=== PATIENT | male | born 1950 | race Caucasian/White ===

== ENCOUNTER 2022-05-12 22:12 | Inpatient (IN) | payer MEDICARE ==
[~2022-05-12] VITALS: Ht 182.9 cm; Wt 85.4 kg
[2022-05-12] MEDS ORDERED: Prinivil10 MG PO (22:46)
[2022-05-12 22:49] LABS: BASOPHILS ABSOLUTE AUTO 0.04 K/mm3 (0.00-0.23); BASOPHILS PERCENT AUTO 1 % (0-2); EOSINOPHILS ABSOLUTE AUTO 0.21 K/mm3 (0.00-0.68); EOSINOPHILS PERCENT AUTO 3 % (0-6); Hemoglobin 13.4 g/dL (13.5-17.5); IMMATURE GRAN ABSOLUTE AUTO 0.02 K/mm3 (0.00-0.10); IMMATURE GRAN PERCENT AUTO 0 % (0-1); LYMPHOCYTES ABSOLUTE AUTO 2.71 K/mm3 (0.84-5.20); LYMPHOCYTES PERCENT AUTO 34 % (21-46); MONOCYTES ABSOLUTE AUTO 0.68 K/mm3 (0.16-1.47); MONOCYTES PERCENT AUTO 9 % (4-13); Mean Corpuscular HGB 32.1 pg (26.0-34.0); Mean Corpuscular HGB Conc 35.3 g/dL (31.5-36.5); Mean Corpuscular Volume 91 fL (80-100); Mean Platelet Volume 10.1 fL (9.1-12.4); NEUTROPHILS ABSOLUTE AUTO 4.21 K/mm3 (1.96-9.15); NEUTROPHILS PERCENT AUTO 54 % (41-73); Platelet Count 217 K/mm3 (150-400); RDW Coefficient Variation 12.4 % (11.7-14.2); RDW Standard Deviation 41.3 fL (35.1-46.3); Red Blood Cell Count 4.17 M/mm3 (4.30-5.90); White Blood Cell Count 7.87 K/mm3 (4.00-11.30)
[2022-05-12 23:01] LABS: Albumin, Blood 3.4 g/dL (3.4-5.0); Albumin/Globulin Ratio 1.2 (0.8-1.8); Bilirubin, Total 0.3 mg/dL (0.1-1.0); Bun/Creatinine Ratio 11.5 (12.0-20.0); Calcium, Blood 8.7 mg/dL (8.5-10.1); Creatinine, Blood 1.04 mg/dL (0.60-1.20); Globulin, Blood 2.9 g/dL (2.2-4.0); Potassium, Blood 3.3 mmol/L (3.5-5.5); Total Protein, Blood 6.3 g/dL (6.4-8.2)
[2022-05-13 04:04] LABS: Anti-Xa UFH, PHA Monitoring <0.10 IU/mL; International Normalized Ratio 1.07; Prothrombin Time Results 11.2 Sec (9.7-11.5)
[2022-05-13 05:25] LABS: Alanine Aminotransfer (ALT/SGP 21 U/L (12-78); Albumin, Blood 3.5 g/dL (3.4-5.0); Albumin/Globulin Ratio 1.1 (0.8-1.8); Alk Phos 58 U/L (50-136); Anion Gap 4 mmol/L (6-16); Aspartate Aminotrans (AST/SGOT 19 U/L (12-37); Bilirubin, Total 0.4 mg/dL (0.1-1.0); Blood Urea Nitrogen 11 mg/dL (8-24); Bun/Creatinine Ratio 10.5 (12.0-20.0); CHOL/HDL RATIO 3.8; CO2, Blood 28 mmol/L (21-32); Calcium, Blood 8.8 mg/dL (8.5-10.1); Chloride, Blood 108 mmol/L (98-108); Cholesterol 185 mg/dL (50-200); Creatinine, Blood 1.05 mg/dL (0.60-1.20); Globulin, Blood 3.2 g/dL (2.2-4.0); Glomerular Filtration Rate 77 (60-); Glucose, Blood 116 mg/dL (70-99); HDL Cholesterol 49 mg/dL (>39); LDL/HDL RATIO 2.3; Low Density Lipoprotein Chol 115 mg/dL (0-110); Sodium, Blood 140 mmol/L (136-145); Total Protein, Blood 6.7 g/dL (6.4-8.2); Triglycerides 107 mg/dL (30-160); Very Low Density Lipoprot Chol 21 mg/dL (6-32)
--- NOTE | 2022-05-13 06:14 | NUR ---
PATIENT IS A NEW ADMIT FROM THE ED. AXOX 4 AND SELF TRANSFER FROM [facility]. ON ROOM AIR. DENIES CHEST PAIN, SOB, AND N/V. TELEMETRY NSR 61. DR COELHO IN ROOM FOR CARDIOLGY CONSULT. LUNGS CLEAR. PIVS INTACT. HEPARIN INFUSING AT 25.8 mL/HR MANAGED BY PHARMACY. ORIENTED TO ROOM AND CALL LIGHT SYSTEM.
[2022-05-13] MEDS ORDERED: CLOP75 PO (12:17)
[2022-05-13] MEDS ORDERED: ASPI81CH PO (12:17)
[2022-05-13] MEDS ORDERED: ATOR10 PO (12:17)
[2022-05-13] MEDS ORDERED: Isosorbide Mono30 MG PO (12:18)
[2022-05-13] MEDS ORDERED: METO25ER PO (12:18)
[2022-05-13] MEDS ORDERED: NITR.4SL SL (12:19)
--- NOTE | 2022-05-13 12:51 | NUR ---
DC HOME WTITTEN & VERBAL DC INSTRUCTIONS GIVEN TO PT WITH GOOD UNDERSTANDING VEBALIZED. ALL CONCERNS & QUESTIONS ANSWERED. BILAT AC IV'S DC'D WITH CATH TIPS INTACT, NO REDNESS OR SWELLING NOTED. PT TO NEIGHBOR'S PRIVATE VEHICLE VIA W/C WITH ALL PERSONAL BELONGINGS.
== END 2022-05-13 12:30 | disposition home or self-care (01) | DRG 282 ==
LOC: ER 22:12 → PCU 05-13 02:42
PROVIDERS: Emergency Medicine; Student in an Organized Health Care Education/Training Program; ADMIT Internal Medicine
DX: I21.4 Non-ST elevation (NSTEMI) myocardial infarction (principal); I10 Essential (primary) hypertension; I73.9 Peripheral vascular disease, unspecified; E78.5 Hyperlipidemia, unspecified; F12.10 Cannabis abuse, uncomplicated; Z96.643 Presence of artificial hip joint, bilateral; Z87.891 Personal history of nicotine dependence; Z98.890 Other specified postprocedural states; Z90.49 Acquired absence of other specified parts of digestive tract; Z88.5 Allergy status to narcotic agent; Z79.811 Long term (current) use of aromatase inhibitors
CPT/HCPCS: 36415; 71046; 80053; 80061; 83690; 83880; 84484; 85025; 85520; 85610; 85730; 93306; 99285-25; A9270; J1644

== ENCOUNTER 2022-05-25 07:16 | Day surgery (SDC) | payer MEDICARE ==
[~2022-05-25] VITALS: Ht 182.9 cm; Wt 85.0 kg
[~2022-05-25 07:16] MED LIST: ASPI81CH PO; ATOR10 PO; CLOP75 PO; Isosorbide Mono30 MG PO; METO25ER PO; NITR.4SL SL; Prinivil10 MG PO
--- NOTE | 2022-05-25 09:05 | NUR ---
0850 PATIENT ARRIVED BACK FROM THE [facility]ATHLAB VIA RECLINER AND PLACED ON THE MONITOR. TR BAND IN PLACE TO THE RIGHT RADIAL WITH 11 ML OF AIR TO THE BAND. DR. ROMEO TO THE BEDSIDE AND SPOKE WITH THE PATIENT AND WILL REFER THE PATIENT FOR SURGICAL CONSULT. BREAKFAST TRAY SERVED. CALL LIGHT IN REACH.
--- NOTE | 2022-05-25 09:49 | NUR ---
ATTEMPTED TO REMOVE AIR FROM THE TR BAND AND BLEEDING OCCURED. AIR REPLACED AND SITE CLEANED.
--- NOTE | 2022-05-25 10:03 | NUR ---
REMOVED 2 ML OF AIR, NO BLEEDING THIS TIME. CONTINUED TO MONITOR.
--- NOTE | 2022-05-25 10:29 | NUR ---
CONTIONIE TO REMOVED AIR, NO BLEEDING, NO HEMATOMA FROM THE TR BAND.
--- NOTE | 2022-05-25 10:41 | NUR ---
PATIENT IS UP AND DRESSING SELF. PIV REMOVED AND PRESSURE DRESSING APPILED TO THE RIGHT AC SITE. NO BLEEIDNG NOTED. OFF MONITOR AND ALL STICKERS REMOVED. REVIEWED DISCHARGE INSTRUCTIONS AND HAD PATIENT SIGN DISCHARGE INSTRUCTIONS.
--- NOTE | 2022-05-25 11:01 | NUR ---
TR BAND REMOVED AND SITE CLEANED, CLOTH DOT PLACED AND WHITE BOARD REPLACED. PATIENT DRESSED AND ALL BELONGINGS GATHERED. WAITING ON [employer] TO ARRIVE FOR RIDE HOME.
--- NOTE | 2022-05-25 11:41 | NUR ---
1130 DISHCARGED HOME VIA WHEELCHAIR TO [facility] AT [facility].
== END 2022-05-25 11:30 | disposition home or self-care (01) ==
LOC: MHTC 07:16
DX: I25.10 Atherosclerotic heart disease of native coronary artery without angina pectoris (principal); I10 Essential (primary) hypertension; Z79.899 Other long term (current) drug therapy; Z79.82 Long term (current) use of aspirin
CPT/HCPCS: 76937; 93458; 99152; 99153; C1769; C1887; C1894; J1644; J2250; J3010; J7030; J7050; Q9967